=== PATIENT | female | born 1990 | race Caucasian/White ===

== ENCOUNTER 2019-09-16 14:31 | Emergency (ER) | payer BC ==
[~2019-09-16] VITALS: Ht 177.8 cm; Wt 100.0 kg
[2019-09-16 14:43] VITALS: BP 128/85; TEMP 97.7
[2019-09-16 15:50] VITALS: PULSE 85
== END 2019-09-16 16:00 | disposition home or self-care (01) ==
LOC: COL.ER 14:31
DX: S09.90XA Unspecified injury of head, initial encounter (principal); R53.81 Other malaise; Z20.828 Contact with and (suspected) exposure to other viral communicable diseases; W22.8XXA Striking against or struck by other objects, initial encounter